=== PATIENT | female | born 1990 | race Caucasian/White ===

== ENCOUNTER 2017-09-04 17:32 | Emergency (ER) | payer OTHER ==
[2017-09-04] MEDS ORDERED: KETOROLAC TROMETHAMINE 60 MG/2 ML VIAL IM ONE ×2 (17:53→17:55)
--- NOTE | 2017-09-04 17:57 | ERNOTE ---
Lower Extremity HPI - Narrative Date of Service: 09/04/17 - General Lower Extremities Pain: hip: right, thigh: right, other: bilateral - low back Time Seen by Provider: 09/04/17 17:47 Source: patient, family, RN notes reviewed Exam Limitations: no limitations - Immun/Allergies/Home Medications Immunizations: IMMUNIZATION HX Immunizations Up to Date Yes History of Influenza Vaccine No Hx Pneumococcal Vaccination No Allergies/Adverse Reactions: Allergies Allergy/AdvReac Type Severity Reaction Status Date / Time sulfamethoxazole Allergy Intermediate Hives Verified 09/04/17 17:41 [From Bactrim] trimethoprim [From Bactrim] Allergy Intermediate Hives Verified 09/04/17 17:41 Home Medications: HOME MEDICATIONS Fluvoxamine Maleate [Fluvoxamine Maleate ER] 1 tab PO DAILY 09/04/17 [Last Taken Unknown] HYDROcodone/ACETAMINOPHEN [[place] 5-325] 1 - 2 tab PO Q6H PRN #20 tab 09/04/17 [ Last Taken Unknown] Ibuprofen [Motrin] 600 mg PO Q6H PRN #40 tab 09/04/17 [Last Taken Unknown] Topiramate [Topamax] 50 mg PO DAILY 09/04/17 [Last Taken Unknown] buPROPion HCL [Wellbutrin] 100 mg PO DAILY 09/04/17 [Last Taken Unknown] - History of Present Illness Narrative: 27 year old female brought to the ED by her mother after being thrown from a horse. The patient reports that something startled the horse, causing it to take off. She was not prepared for this and fell off the back of the horse, landing on her right hip. She reports being unable to bear any weight on her right leg. Occurred: just prior to arrival Method of Injury: Reports: fell Reason for Fall: Reports: other Loss of Consciousness: Reports: no loss of consciousness Associated Symptoms: Reports: unable to bear weight. Denies: snapping, popping sensation Other Injuries: Reports: none Subsequent Symptoms: Denies: sensory loss, numbness, motor loss, bowel/bladder problem Review of Systems - Review of Systems Constitutional: Present: no symptoms reported EYE: Present: no symptoms reported ENT: Present: no symptoms reported Respiratory: Present: no symptoms reported Cardiology: Present: no symptoms reported Gastrointestinal/Abdominal: Absent: nausea, vomiting, abdominal pain Genitourinary: Absent: other - possible Musculoskeletal: Present: back pain, muscle pain, joint pain. Absent: neck pain Skin: Absent: lesions, lumps Neurological: Absent: headache, dizziness/light-headedness Endocrine: Present: no symptoms reported Hematologic/Lymphatic: Present: no symptoms reported Psych: Present: no symptoms reported - Patient's Past Medical History Patient History - Medical: Anxiety, Chronic Pain, Other Patient History - Cardiac/Respiratory: No pertinent hx Patient History - Cancer: No Hx of Cancer Patient History - Surgical Procedures: Other Patient History - Other: None LMP (females 10-50): unknown - Social History Living Situations: significant other Abuse History: No History of abuse Psych History: Hx of Anxiety Smoking Status: Never smoker Have you smoked in the past 12 months: No Do you dip or chew tobacco: No Alcohol Use: occasionally Drug Use: none - Immunizations Immunizations Up to Date: Yes Hx Pneumococcal Vaccination: No History of Influenza Vaccine: No Physical Exam - Physical Exam General Appearance: Present: wd/wn, alert, mild distress Head Exam: Present: normal inspection, no evidence of injury Respiratory: Present: no respiratory distress, no accessory muscle use Cardiovascular/Chest: Present: normal peripheral pulses Peripheral Pulses: N=norm/S=strong/W=weak/B=bound/A=absent: Dorsalis-pedis (R): Strong, Dorsalis-pedis (L): Strong Back Exam: Present: no CVA tenderness, vertebral tenderness - lower lumbar and sacral region Extremity Exam: Present: decreased range of motion - Right hip, other - tenderness throughout right hip and thigh. Absent: joint swelling, extremity edema Neurological Exam: Present: alert, oriented, normal mood/affect, no motor/ sensory deficits Skin Exam: Present: normal color, warm/dry, other - abrasion present on right hip ED Progress - Vital Signs Patient's Vital Signs:: I have reviewed the patient's vital signs. Vital Signs: Vital Signs 09/04/17 17:34 Temperature 36.8 C Pulse Rate 97 Respiratory 14 Rate Blood Pressure 146/88 O2 Sat by Pulse 100 Oximetry - X-Ray X-Ray #1 X-Ray: lumbosacral Interpretation: Reviewed by me X-ray Comments: No acute osseous abnormalities X-Ray #2 X-Ray: hip - and pelvis, right Interpretation: Reviewed by me X-ray Comments: No acute osseous abnormalities X-Ray #3 X-Ray: femur - Right Interpretation: Reviewed by me X-ray Comments: No acute osseous abnormalities - Progress/Reassessment Chief Complaint: Lower Extremity Pain/ Injury Progress:: Improved Departure Clinical Impression: Fall from horse Qualifiers: Encounter type: initial encounter Qualified Code(s): V80.010A - Animal-rider injured by fall from or being thrown from horse in noncollision accident, initial encounter Contusion, hip Qualifiers: Encounter type: initial encounter Laterality: right Qualified Code(s): S70.01XA - Contusion of right hip, initial encounter - Departure Disposition: Home Follow Up Needed Condition: Stable Instructions: Contusion, [id number], Form - Excuse from Work, School, or Physical Activity Additional Instructions: Activity as tolerated Ice to sore areas Follow up with your doctor if no improvement in 3 to 4 days Prescriptions: HYDROcodone/ACETAMINOPHEN [[place] 5-325] 1 - 2 tab PO Q6H PRN #20 tab PRN Reason: Pain Ibuprofen [Motrin] 600 mg PO Q6H PRN #40 tab PRN Reason: Pain
[2017-09-04] MEDS ORDERED: HYDROcodone/ACETAMINOPHEN 1 EACH TABLET PO ONE (19:12)
[2017-09-04] MEDS ORDERED: HYDROcodone/ACETAMINOPHEN 1 EACH TABLET ONE (19:15)
[2017-09-04] MEDS ORDERED: ONDANSETRON 4 MG TAB.RAPDIS ONE (19:16)
[2017-09-04] MEDS ORDERED: ONDANSETRON 4 MG TAB.RAPDIS PO ONE (19:17)
[2017-09-04 19:42] VITALS: BP 121/76
== END 2017-09-04 19:23 | disposition home or self-care (01) ==
LOC: ER 17:32
DX: S70.01XA Contusion of right hip, initial encounter (principal); V80.010A Animal-rider injured by fall from or being thrown from horse in noncollision accident, initial encounter; Y93.52 Activity, horseback riding; G89.29 Other chronic pain; F41.8 Other specified anxiety disorders